=== PATIENT | female | born 2000 | race Caucasian/White ===

== ENCOUNTER 2023-06-16 15:10 | Emergency (ER) | payer MEDICAID ==
[~2023-06-16] VITALS: Ht 172.7 cm; Wt 65.7 kg
[2023-06-16] MEDS ORDERED: ketorolac trometh inj. 60 MG/2 ML VIAL IM ONE (15:25)
[2023-06-16] MEDS: ketorolac tromethamine 15mg/ml inj. IM ONE (15:30)
[2023-06-16 16:46] LABS: BASOPHILS % (AUTO) 0.2 % (0-1); EOSINOPHILS % (AUTO) 0.2 % (0-6); HEMATOCRIT 40.4 % (35.0-45.0); HEMOGLOBIN 13.7 g/dl (12.0-16.0); LYMPHOCYTES # (AUTO) 1.1 X10'3 (1.1-4.8); LYMPHOCYTES % (AUTO) 7.8 % (21-51); MEAN CORPUSCULAR HEMOGLOBIN 28.2 PG (27.0-31.0); MEAN CORPUSCULAR HGB CONC 33.8 g/dL (33.0-36.5); MEAN CORPUSCULAR VOLUME 83.3 FL (78-98); MEAN PLATELET VOLUME 6.9 FL (7.4-10.4); MONOCYTES % (AUTO) 7.1 % (2-12); NEUTROPHILS # (AUTO) 11.7 X10'3 (1.8-7.7); NEUTROPHILS % (AUTO) 84.7 % (42-75); PLATELET COUNT 478 X10'3 (140-440); RED BLOOD COUNT 4.85 X10'6 (4.20-5.60); RED CELL DISTRIBUTION WIDTH 14.4 % (11.5-14.5); WHITE BLOOD COUNT 13.7 X10'3 (4.5-11.0)
[2023-06-16 16:56] LABS: BILIRUBIN,URINE MODERATE (Neg); CLARITY,URINE CLOUDY (Clear); COLOR,URINE YELLOW (Yellow); GLUCOSE, URINE NEGATIVE (Neg); KETONES,URINE NEGATIVE (Neg); LEUKOCYTE ESTERASE ,URINE SMALL (Neg); NITRITES, URINE NEGATIVE (Neg); OCCULT BLOOD,URINE LARGE (Neg); PH,URINE 7.5 (4.8-8.0); PROTEIN,URINE >=300 mg/dl (Neg)
[2023-06-16] MEDS: dexamethasone sod phosphate 10mg/ml inj IM STA (16:56)
[2023-06-16 16:59] LABS: APTT 24 SECONDS (22-32); PROTHROMBIN TIME 10.6 SECONDS (9.0-12.0)
[2023-06-16 17:03] LABS: URINE HCG NEGATIVE (NEG)
[2023-06-16 17:07] LABS: ALANINE AMINOTRANSFERASE 20 U/L (12-78); ALBUMIN/GLOBULIN RATIO 0.5 (1.1-1.5); ALKALINE PHOSPHATASE 73 IU/L (46-116); ANION GAP 7 (8-16); ASPARTATE AMINO TRANSFERASE 21 U/L (10-37); BILIRUBIN,TOTAL 0.4 MG/DL (0.1-1.0); BLOOD UREA NITROGEN 15 MG/DL (7-18); BUN/CREATININE RATIO 18.1 (10.0-20.0); CALCIUM 8.9 MG/DL (8.5-10.1); CHLORIDE 97 MMOL/L (99-107); CREATININE 0.83 MG/DL (0.40-0.90); GLUCOSE 87 MG/DL (70-104); POTASSIUM 4.7 MMOL/L (3.5-5.1); SODIUM 134 MMOL/L (135-145); TOTAL CARBON DIOXIDE 29.7 MMOL/L (24-32); TOTAL PROTEIN 8.6 G/DL (6.4-8.2); eCRCL 105 ML/MIN; eGFR 84 ML/MIN
[2023-06-16 17:08] LABS: UA COLLECTION TYPE VOIDED
[2023-06-16 17:09] LABS: SQUAMOUS EPITHELIAL CELL,UR MANY /LPF (FEW); WBC,URINE TNTC /HPF (0-4)
[2023-06-16] MEDS: normal saline 1000ML IV soln IV ONE (17:09)
[2023-06-16 17:10] LABS: BACTERIA,URINE 3+ /HPF (Neg); RBC,URINE TNTC /HPF (0-2)
[2023-06-16 17:11] LABS: AMORPHOUS PHOSPHATES 2+
[2023-06-16 17:18] LABS: C-REACTIVE PROTEIN 5.49 MG/DL (0.0-0.5); FREE T4 (FREE THYROXINE) 1.29 NG/DL (0.73-1.40); THYROID STIMULATING HORMONE 2.06 ulU/ml (0.34-4.50)
[2023-06-16 17:37] LABS: CREATINE KINASE 153 U/L (26-192)
[2023-06-16 17:55] LABS: HCG SERUM QL NEGATIVE
[2023-06-16 18:06] LABS: URINE AMPHETAMINE SCREEN POSITIVE (Neg); URINE BARBITUATE SCREEN NEGATIVE (Neg); URINE BENZODIAZEPINES SCREEN NEGATIVE (Neg); URINE CANNABINOID SCREEN POSITIVE (Neg); URINE COCAINE SCREEN NEGATIVE (Neg); URINE METHADONE SCREEN NEGATIVE (Neg); URINE OPIATE SCREEN NEGATIVE (Neg); URINE PHENCYCLIDINE SCREEN NEGATIVE (Neg)
[2023-06-16 18:09] LABS: MONOTEST NEGATIVE (Neg)
[2023-06-17 00:05] VITALS: TEMP 98.5
[2023-06-17] MEDS ORDERED: CEPH-585 PO (01:08)
[2023-06-17] MEDS ORDERED: CLIN300C3 PO (01:08)
[2023-06-17] MEDS ORDERED: piperacillin/tazo 3.375gm/50ml 50 ML IV SCH (01:10)
[2023-06-17] MEDS: piperacillin/tazo 3.375gm/50ml 50 ML IV SCH (01:22)
[2023-06-17] MEDS: vancomycin/NS 1 GM ADD-VANTAGE 250 ML IV ONE (01:51)
[2023-06-17 03:38] VITALS: BP 96/67; PULSE 99; RESP 18; O2SAT 99
== END 2023-06-17 03:39 | disposition home or self-care (01) ==
LOC: ER 15:11
DX: R22.1 Localized swelling, mass and lump, neck (principal); Z20.822 Contact with and (suspected) exposure to COVID-19; F15.10 Other stimulant abuse, uncomplicated; N39.0 Urinary tract infection, site not specified; R79.1 Abnormal coagulation profile; Z79.2 Long term (current) use of antibiotics
CPT/HCPCS: 36415; 70490; 76536; 80053; 80305; 81001; 81025; 82550; 83605; 84145; 84439; 84443; 84703; 85025; 85610; 85651; 85730; 86140; 86308; 87040; 87811; 93005; 96361; 96365; 96368; 96372; 99285; J1100; J2543; J3370; J7030

== ENCOUNTER 2023-10-31 21:01 | Emergency (ER) | payer MEDICAID ==
[~2023-10-31] VITALS: Ht 175.3 cm; Wt 63.6 kg
[2023-10-31] MEDS ORDERED: PRED50TA PO (21:18)
[2023-10-31] MEDS ORDERED: HYDR-3686 PO (21:18)
[2023-10-31] MEDS ORDERED: SKIN30CL4 TOP (21:20)
[2023-10-31] MEDS ORDERED: NO HOME MEDS (21:21)
[2023-10-31] MEDS: predniSONE 20 mg tablet PO ONE (21:28)
[2023-10-31] MEDS: hydrOXYzine 25 MG tablet PO ONE (21:28)
[2023-10-31 21:36] VITALS: BP 126/78; PULSE 88; RESP 16; TEMP 98.4; O2SAT 99
== END 2023-10-31 21:40 | disposition home or self-care (01) ==
LOC: ER 21:02
DX: R21 Rash and other nonspecific skin eruption (principal)
CPT/HCPCS: 99283; J7512; Q0177